=== PATIENT | male | born 1980 | race African-American/Black ===

== ENCOUNTER 2024-06-16 01:45 | Emergency (ER) | payer SELFPAY ==
[2024-06-16 02:39] LABS: Specific Gravity 1.011 (1.005-1.030); Sqamous Epithelial <5 /HPF (None Seen); Urine Bacteria None Seen /HPF (<20); Urine Bilirubin NEGATIVE (Negative); Urine Blood 2+ (Negative); Urine Clarity Turbid (Clear); Urine Color Colorless (Yellow); Urine Culture Reflex Order NOT NEEDED; Urine Glucose NEGATIVE (Negative); Urine Ketones NEGATIVE (Negative); Urine Microscopic Reflex YN ORDER UMIC; Urine Mucus Slight /HPF (None Seen); Urine Nitrite NEGATIVE (Negative); Urine Protein NEGATIVE (Negative); Urine Urobilinogen Normal (Normal); Urine WBC <5 /HPF (<5)
[2024-06-16 02:41] LABS: Absolute Eosinophils 0.2 K/uL (0-0.5); Absolute Monocytes 0.5 K/uL (0.1-1.3); Absolute Neutrophil 3.7 K/uL (1.8-8.0); Basophils % 0.3 % (0-1.3); Eosinophils % 2.7 % (0-4.4); Hematocrit 38.6 % (39.6-49.0); Hemoglobin 13.2 g/dL (13.6-17.9); MCHC 34.1 g/dL (32.0-36.0); MPV 8.4 fL (7.6-11.3); Monocytes % 6.4 % (3.3-12.3); Neutrophils % 43.6 % (41.7-73.7); Nucleated Red Blood Cells % 0.1 % (0-0); Platelets 277 thou/uL (152-406); RBC Red Blood Cell Count 4.24 M/uL (4.33-5.43); Red Cell Distribution Width 13.1 % (12.1-15.2)
[2024-06-16 02:50] LABS: Albumin 3.5 g/dL (3.4-5.0); Albumin/Globulin Ratio 0.9 (1.1-1.8); Anion Gap 6.6 mEq/L (5.0-15.0); Bilirubin Total 0.2 mg/dL (0.2-1.0); Globulin 3.8 g/dL (2.3-3.5); Potassium 3.6 mEq/L (3.5-5.1); Protein, Total 7.3 g/dL (6.4-8.2)
--- NOTE | 2024-06-16 04:00 | EDPHYS ---
Physician Documentation [facility] Name: Junior Marte Age: 43 yrs Sex: Male : 1980 Arrival Date: 06/16/2024 Time: 01:45 Bed 18 Private MD: ED Physician Akhil Kumar HPI: 06/16 02:26 This 43 yrs old Black Male presents to ER via Ambulatory with complaints of HEMATURIA. rn 02:26 The patient presents with urinary symptoms, Hematuria. The patient has not experienced rn similar symptoms in the past. Patient reports left flank pain associated with hematuria when finishes urinating. Patient reports finding small amount of discharge in underwear yesterday. Blood is at the end of urinary stream and when wiping. No trauma. Not sexually active since last November so no STI suspected. No lesions. No history of kidney stone. No fever or chills.. Historical: - Allergies: 01:54 Bactrim; ha1 - PMHx: 01:54 Diabetes mellitus; Seizure; Hypertensive disorder; Asthma; Hypercholesterolemia; ha1 - PSHx: 01:54 ABDOMINAL; ha1 - Immunization history:: Adult Immunizations up to date. - Infectious Disease History:: Denies. - Social history:: Smoking status: Patient reports the use of cigarette tobacco products, cigars. - Family history:: not pertinent. - Hospitalizations: : No recent hospitalization is reported. ROS: 02:26 Constitutional: Negative for fever, chills, and weight loss, Cardiovascular: Negative rn for chest pain, palpitations, and edema, Respiratory: Negative for shortness of breath, cough, wheezing, and pleuritic chest pain, Abdomen/GI: Negative for abdominal pain, nausea, vomiting, diarrhea, and constipation, Back: Positive for left flank pain : Positive for dysuria MS/Extremity: Negative for injury and deformity, Skin: Negative for injury, rash, and discoloration, Neuro: Negative for headache, weakness, numbness, tingling, and seizure, Exam: 02:26 Constitutional: This is a well developed, well nourished patient who is awake, alert, rn and in no acute distress. Urine specimen cup without gross hematuria, patient shows me bathroom tissue with small amount of blood when wiping. Back: No CVA tenderness Vital Signs: 01:54 BP 147 / 91; Pulse 65; Resp 17 S; Temp 98.3(T); Pulse Ox 100% on R/A; Weight 100.24 kg; ha1 Height 5 ft. 9 in. ; 02:47 BP 147 / 91; Pulse 68; Resp 17 S; Pulse Ox 100% on R/A; ha1 03:50 BP 147 / 85; Pulse 67; Resp 17 S; Pulse Ox 100% on R/A; ha1 01:54 Body Mass Index 32.64 (100.24 kg, 175.26 cm) 1 MDM: 01:48 Medical Screening Exam initiated rn 03:55 Differential diagnosis: nonspecific abdominal pain, UTI, kidney stone. Data reviewed: rn vital signs, nurses notes, lab test result(s), radiologic studies, CT scan, and as a result, I will discharge patient. Counseling: I had a detailed discussion with the patient and/or guardian regarding the historical points, exam findings, and any diagnostic results supporting the discharge/admit diagnosis, lab results, radiology results, the need for outpatient follow up, to return to the emergency department if symptoms worsen or persist or if there are any questions or concerns that arise at home. Special discussion: I discussed with the patient/guardian in detail that at this point there is no indication for admission to the hospital. It is understood, however, that if the symptoms persist or worsen the patient needs to return immediately for re-evaluation. 03:55 ED course: CT shows possible cystitis. Is consistent with patient's symptoms. No rn evidence of kidney stone or other acute pathology. Discussed findings of cholelithiasis with patient but patient is not having any problems regarding gallbladder pain or discomfort when eating. I have personally reviewed all of the results, including but not limited to blood tests and imaging deemed necessary to safely discharge this patient at this time. All results given to and printed out for patient. I personally went over all the results with the patient and answered all questions. Patient will follow-up with PCP and or specialist as discussed. Return precautions given and understood.. 06/16 02:01 Order name: CBC with Diff rn 06/16 02:01 Order name: CMP; Complete Time: 02:51 rn 06/16 02:01 Order name: Lipase; Complete Time: 02:51 rn 06/16 02:01 Order name: Urinalysis w/ reflexes; Complete Time: 02:51 rn 06/16 02:53 Order name: Manual Differential EDMS 06/16 02:01 Order name: CT Stone Protocol; Complete Time: 04:19 rn 06/16 02:01 Order name: IV Saline Lock; Complete Time: 02:41 rn 06/16 02:01 Order name: Labs collected and sent; Complete Time: 02:41 rn Administered Medications: 04:07 Drug: Ciprofloxacin PO 500 mg PO once Route: PO; ha1 04:21 Follow up: Response: No adverse reaction ha1 Disposition Summary: 06/16/24 03:59 Discharge Ordered Notes: Location: Home rn Problem: new rn Symptoms: have improved rn Condition: Stable rn Diagnosis - Acute cystitis with hematuria rn Followup: rn - With: Private Physician - When: As needed - Reason: Recheck today's complaints, Re-evaluation by your physician Discharge Instructions: - Discharge Summary Sheet rn - Hematuria, Adult rn - Urinary Tract Infection, Adult rn Forms: - Medication Reconciliation Form rn - Antibiotic government relations director - Prescription Opioid Use rn - Patient Portal Instructions rn - Leadership Thank You Letter rn Prescriptions: - Cipro 500 mg Oral Tablet - take 1 tablet ORAL route every 12 hours for 7 days; 14 tablet; Refills: 0, rn Product Selection Permitted Signatures: Dispatcher [employer] EDAkhil Savage MD MD rn Ayala, Heidy, RN RN ha1 Corrections: (The following items were deleted from the chart) 02:12 01:54 PMHx: Hypothyroidism; ha1 ha1
--- NOTE | 2024-06-16 04:00 | ER ---
Nurse's Notes [facility] Name: Junior Marte Age: 43 yrs Sex: Male : 1980 Arrival Date: 06/16/2024 Time: 01:45 Bed 18 Private MD: Diagnosis: Acute cystitis with hematuria Presentation: 06/16 01:54 Chief complaint: Patient states: BLOOD IN THE URINE , BURNING SENSATION WHEN URINATING. ha1 01:54 Coronavirus screen: Client denies travel out of the [place] in the last 14 days. Ebola ha1 Screen: No symptoms or risks identified at this time. Initial Sepsis Screen: Does the patient meet any 2 criteria? No. Patient's initial sepsis screen is negative. Does the patient have a suspected source of infection? No. Patient's initial sepsis screen is negative. Risk Assessment: Do you want to hurt yourself or someone else? Patient reports no desire to harm self or others. Onset of symptoms was June 16, 2024. 01:54 Method Of Arrival: Ambulatory ha1 01:54 Acuity: FAVIO 3 ha1 Triage Assessment: 01:54 General: Appears comfortable, Behavior is calm, cooperative. Pain: Complains of pain in ha1 BURNING WITH URINATION. Neuro: Level of Consciousness is awake, alert, obeys commands, Oriented to person, place, time, situation. Cardiovascular: Capillary refill < 3 seconds Patient's skin is warm and dry. Respiratory: Airway is patent Respiratory effort is even, unlabored, Respiratory pattern is regular, symmetrical. GI: No signs and/or symptoms were reported involving the gastrointestinal system. Abdomen is round non-distended, obese. : Reports burning with urination, since TODAY. Derm: Skin is normal. Musculoskeletal: Circulation, motion, and sensation intact. Range of motion: intact in all extremities. Historical: - Allergies: 01:54 Bactrim; ha1 - PMHx: :54 Diabetes mellitus; Seizure; Hypertensive disorder; Asthma; Hypercholesterolemia; ha1 - PSHx: :54 ABDOMINAL; ha1 - Immunization history:: Adult Immunizations up to date. - Infectious Disease History:: Denies. - Social history:: Smoking status: Patient reports the use of cigarette tobacco products, cigars. - Family history:: not pertinent. - Hospitalizations: : No recent hospitalization is reported. Screenin:14 [facility] ED Fall Risk Assessment (Adult) History of falling in the last 3 months, ha1 including since admission No falls in past 3 months (0 pts) Confusion or Disorientation No (0 pts) Intoxicated or Sedated No (0 pts) Impaired Gait No (0 pts) Mobility Assist Device Used No (0 pt) Altered Elimination No (0 pt) Score/Fall Risk Level 0 - 2 = Low Risk Oriented to surroundings, Maintained a safe environment, Educated pt \T\ family on fall prevention, incl call for assistance when getting out of bed, Hourly rounding (assess needs \T\ fall precautionary measures) done. Abuse screen: Denies threats or abuse. Denies injuries from another. Nutritional screening: No deficits noted. Tuberculosis screening: No symptoms or risk factors identified. Assessment: 01:54 Reassessment: SEE TRIAGE ASSESSMENT. ha1 02:47 Reassessment: Patient and/or family updated on plan of care and expected duration. Pain ha1 level reassessed. Patient is alert, oriented x 3, equal unlabored respirations, skin warm/dry/pink. 03:50 Reassessment: Patient and/or family updated on plan of care and expected duration. Pain ha1 level reassessed. Patient is alert, oriented x 3, equal unlabored respirations, skin warm/dry/pink. Vital Signs: 01:54 BP 147 / 91; Pulse 65; Resp 17 S; Temp 98.3(T); Pulse Ox 100% on R/A; Weight 100.24 kg; ha1 Height 5 ft. 9 in. ; 02:47 BP 147 / 91; Pulse 68; Resp 17 S; Pulse Ox 100% on R/A; ha1 03:50 BP 147 / 85; Pulse 67; Resp 17 S; Pulse Ox 100% on R/A; ha1 01:54 Body Mass Index 32.64 (100.24 kg, 175.26 cm) ha1 ED Course: 01:47 Patient arrived in ED. [id number] 01:48 Akhil Kumar MD is Attending Physician. rn 01:54 Patient has correct armband on for positive identification. Bed in low position. Call ha1 light in reach. Side rails up X 1. Adult w/ patient. 01:54 Provided Education on: PLAN OF CARE . ha1 01:54 Arm band placed on right wrist. ha1 02:05 Maria De Jesus Hurtado, RN is Primary Nurse. ha1 02:08 Triage completed. ha1 02:24 Inserted saline lock: 22 gauge in right antecubital area, using aseptic technique. oe Blood collected. Flushed with 10 mL NS. 02:29 CT Stone Protocol In Process Unspecified. EDMS 02:41 CBC with Diff Sent. ha1 02:41 CMP Sent. ha1 02:42 Lipase Sent. ha1 04:20 No provider procedures requiring assistance completed. IV discontinued, intact, ha1 bleeding controlled, No redness/swelling at site. Pressure dressing applied. Administered Medications: 04:07 Drug: Ciprofloxacin PO 500 mg PO once Route: PO; ha1 04:21 Follow up: Response: No adverse reaction ha1 Medication: 02:15 VIS not applicable for this client. ha1 Outcome: 03:59 Discharge ordered by . rn 04:20 Discharged to home ambulatory, ha1 04:20 Condition: stable 04:20 Discharge instructions given to patient, Instructed on discharge instructions, follow up and referral plans. medication usage, Demonstrated understanding of instructions, follow-up care, medications, Prescriptions given X 1, 04:21 Patient left the ED. ha1 Signatures: Dispatcher [employer] EDMS Akhil Kumar MD MD rn Espinosa, Orlando oe Jeffries, Jennifer [id number] Maria De Jesus Hurtado, RN RN ha1 Corrections: (The following items were deleted from the chart) 02:12 01:54 PMHx: Hypothyroidism; ha1 ha1
[2024-06-16] MEDS ORDERED: CIPROFLOXACIN HCL 500 MG TAB ONE (04:03)
--- NOTE | 2024-06-16 04:17 | RAD REPORT ---
PROCEDURE: CT Abdomen and Pelvis Without Intravenous Contrast CLINICAL INDICATION: The patient is 43 years old and is Male; Left flank pain, hematuria. TECHNIQUE: Axial computed tomography images of the abdomen and pelvis without intravenous contrast. Sagittal a nd coronal reformatted images were created and reviewed. This CT exam was performed using one or more of the following dose reduction techniques: automated exposure control, adjustment of the mA a nd/or kV according to patient size, and/or use of iterative reconstruction technique. COMPARISON: None. FINDINGS: LUNG BASES: Unremarkable No mass. No consolidation. ABDOMEN: LIVER: Unremarkable GALLBLADDER AND BILE DUCTS: Numerous dense stones demonstrated within a contracted gallbladder lume n. No ductal dilation. PANCREAS: Unremarkable No ductal dilation. SPLEEN: Unremarkable No splenomegaly. ADRENALS: Unremarkable No mass. KIDNEYS AND URETERS: Unremarkable No obstructing stones. No hydronephrosis. STOMACH AND BOWEL: Unremarkable No obstruction. No mucosal thickening. PELVIS: APPENDIX: No findings to suggest acute appendicitis. BLADDER: Bladder wall thickening which may be due to the decompressed state of the bladder or due t o cystitis. No stones. REPRODUCTIVE: Unremarkable as visualized. ABDOMEN and PELVIS: INTRAPERITONEAL SPACE: Scattered coarse calcifications demonstrated throughout the left greater benji n right omental fat. No free air. No significant fluid collection. BONES/JOINTS: No acute fracture. No dislocation. SOFT TISSUES: Small fat-containing left of midline supraumbilical ventral wall hernia. Remote midli ne abdominal wall incision changes demonstrated. VASCULATURE: Unremarkable No abdominal aortic aneurysm. LYMPH NODES: Unremarkable No enlarged lymph nodes. IMPRESSION: 1. Bladder wall thickening which may be due to the decompressed state of the bladder or due to cyst itis. Correlation with urinalysis recommended. 2. Otherwise, allowing for lack of intravenous contrast, no acute abnormality of the abdomen or pel vis. 3. Cholelithiasis. 4. Scattered coarse calcifications demonstrated throughout the left greater than right omental fat. Nonspecific, but could reflect sequelae of prior omental inflammation, trauma, or previous surgical intervention. Electronically signed by: Domo Lopez MD 06/16/2024 03:44 AM CDT RP Due to temporary technical issues with the PACS/ProMed reporting system, reports are being pallavi d by the in-house radiologist without review as a courtesy to ensure prompt reporting the interpreting radiologist is fully responsible for the content of the report. Transcribed Date/Time: 06/16/2024 4:17 AM
[2024-06-16 04:31] LABS: Band Neutrophils 2 % (0-1); Differential Total Cells Count 100; Eosinophils 3 % (0-3); Lymphocytes 37 % (15-42); Monocytes 3 % (0-10); Reactive Lymphocytes 13 %; Segmented Neutrophils 42 % (40-80)
[2024-06-16 04:32] LABS: Blood Morphology Comment NOT SEEN (NOT SEEN); Platelet Estimate ADEQ
[2024-06-16 04:33] VITALS: TEMP 98.3; O2SAT 100
[2024-06-16 04:48] VITALS: BP 147/85
== END 2024-06-16 04:21 | disposition home or self-care (01) ==
LOC: ER 01:45
DX: N30.01 Acute cystitis with hematuria (principal)
CPT/HCPCS: 36415; 74176; 76377; 80053; 81001; 83690; 85025; 99284